=== PATIENT | female | born 1995 | race African-American/Black ===

== ENCOUNTER 2025-03-20 08:10 | Outpatient (CLI) | payer MEDICAID, OTHER | END 2025-03-20 08:11 | disposition home or self-care (01) | LOC: CSHULT 08:10 | PROVIDERS: ATTEND Family Medicine | DX: O09.92 Supervision of high risk pregnancy, unspecified, second trimester (principal); Z3A.25 25 weeks gestation of pregnancy | CPT/HCPCS: 76805 ==

== ENCOUNTER 2025-04-03 08:55 | Day surgery (SDC) | payer BC, SELFPAY ==
[2025-04-03] MEDS ORDERED: Sodium Bicarbonate 2.5 MEQ/5 ML SDV ONE (09:33)
[2025-04-03 09:34] VITALS: BP 118/72; TEMP 98.9
[2025-04-03] MEDS ORDERED: FLU (Fluarix Triv) 25-26 (6MOS UP)/PF 45 MCG/0.5 ML Syringe IM ONE (09:45)
== END 2025-04-03 10:07 | disposition home or self-care (01) ==
LOC: CSHULT 08:55
PROC: 0GBG4ZX Excision of Left Thyroid Gland Lobe, Percutaneous Endoscopic Approach, Diagnostic (ICD-10-PCS; principal; 2025-04-03)
DX: E04.2 Nontoxic multinodular goiter (principal)
CPT/HCPCS: 10005; 88173